=== PATIENT | female | born 1960 | race Caucasian/White ===

== ENCOUNTER 2017-10-27 13:05 | Day surgery (SDC) | END 2017-10-27 15:36 | disposition home or self-care (01) ==

== ENCOUNTER 2019-01-05 15:13 | Day surgery (SDC) | payer BC, OTHER ==
[~2019-01-05] VITALS: Ht 152.4 cm; Wt 69.5 kg
[~2019-01-05 15:13] MED LIST: ATORVASTATIN; LISINOPRIL; OMEPRAZOLE
[2019-01-05 16:36] VITALS: Ht 152.4 cm; Wt 69.5 kg
[2019-01-05 17:05] VITALS: BP 139/70; PULSE 56; RESP 17
--- NOTE | 2019-01-05 17:58 | PREAC ---
Date/Time of Note Date/Time of Note DATE: 01/05/19 TIME: 17:56 Anesthesia Eval and Record Evaluation Time Pre-Procedure Interview DATE: 01/05/19 TIME: 17:56 Age 58 Sex female NPO: 8 hrs Preoperative diagnosis Dyspepsia Planned procedure EGD Past Medical History Past Medical History: Includes Cardio: HTN, Dyslipidemia GI: Morbid obesity Surgery & Anesthesia Issues No known issue Meds Anticoagulation: No Beta Alan within 24 hr: No Reason Beta Alan not given: Pt. not on B-Alan Reported Medications [Atorvastatin] No Conflict Check 01/05/19 [Omeprazole] No Conflict Check 01/05/19 [Lisinopril] No Conflict Check 01/05/19 Meds reviewed: Yes Allergies Uncoded Allergies: PCN (Adverse Reaction, Unknown, 10/27/17) Allergies Reviewed: Yes Labs/Studies Labs Reviewed: Reviewed by anesthesiologist test: N/A Studies: ECG Pre-procedure Exam Last vitals Vital Signs Date Temp Pulse Resp B/P (MAP) Pulse Ox O2 O2 Flow FiO2 Time Delivery Rate 01/05/19 98.4 56 17 139/70 98 Room Air 17:05 (93) Airway: Adequate mouth opening, Adequate thyromental dist Mallampati: Mallampati II Teeth: Normal Lung: Normal Heart: Normal ASA Physical Status ASA physical status: 3 Emergency: None Planned Anesthetic General/MAC: MAC Planned Pain Management Parenteral pain med Pre-operative Attestations Prior to commencing anesthesia and surgery, the patient was re-evaluated, there was verification of: *The patient's identity *The results of appropriate recent lab work and preoperative vital signs *The above evaluation not changing prior to induction *Anesthetic plan, risk benefits, alternative and complications discussed with patient/family; questions answered; patient/family understands, accepts and wishes to proceed. BONNY HAGEN MD Jan 05, 2019 17:58
[2019-01-05] MEDS ORDERED: PROPOFOL 40 ML ONE (17:59)
[2019-01-05] MEDS ORDERED: LIDOCAINE 2% (SDV) 5 ML INJ ONE (17:59)
--- NOTE | 2019-01-05 18:23 | PAC ---
Date/Time of Note Date/Time of Note DATE: 01/05/19 TIME: 18:22 Post-Anesthesia Notes Post-Anesthesia Note Last documented vital signs Vital Signs Date Temp Pulse Resp B/P (MAP) Pulse Ox O2 O2 Flow FiO2 Time Delivery Rate 01/05/19 98.4 56 17 139/70 98 Room Air 17:05 (93) Activity: WNL Respiratory function: WNL Cardiovascular function: WNL Mental status: Baseline Pain reasonably controlled: Yes Hydration appropriate: Yes Nausea/Vomiting absent: Yes Comments BP:112/56, P:74, Spo2:100%, T:98,8 BONNY HAGEN MD Jan 05, 2019 18:23
== END 2019-01-05 19:15 | disposition home or self-care (01) ==
LOC: GIL 15:13
PROVIDERS: ATTEND Internal Medicine Gastroenterology
DX: K29.30 Chronic superficial gastritis without bleeding (principal); K20.9 Esophagitis, unspecified; I10 Essential (primary) hypertension; K59.09 Other constipation
CPT/HCPCS: 43239; 88305; 88312; 88313; Z7610